=== PATIENT | female | born 1985 | race Caucasian/White ===

== ENCOUNTER 2016-04-22 17:38 | Observation (INO) | payer MEDICAID ==
[2016-04-22 18:32] LABS: CHLORIDE,CL 101 mmol/L (98-115); SODIUM,NA 137 mmol/L (136-145)
[2016-04-22] MEDS ORDERED: Iopamidol 612 MG/ML 75 ML Bottle IV PRN (18:50)
[2016-04-22] MEDS ORDERED: Sodium Chloride 0.9% 50 ML SDV FLUSH ONE (18:50)
[2016-04-22] MEDS ORDERED: Ibuprofen 400 MG Tab PO PRN (18:54)
[2016-04-22] MEDS ORDERED: Zolpidem 5 MG Tab PO PRN (18:54)
[2016-04-22] MEDS ORDERED: LORazepam 0.5 MG Tab PO PRN (18:54)
[2016-04-22] MEDS: Morphine 2 MG/ML Syringe IVPUSH PRN ×3 (19:01→23:49)
[2016-04-22] MEDS ORDERED: Levofloxacin/Dextrose 5%-Water 500 MG in Premix Bag 1 BAG IV ONE (20:08)
[2016-04-22] MEDS ORDERED: Levofloxacin/Dextrose 5%-Water 250 MG in Premix Bag 1 BAG IV ONE (20:08)
[2016-04-22] MEDS ORDERED: Levofloxacin/Dextrose 5%-Water 100 ML IV ONE (20:26)
[2016-04-22] MEDS ORDERED: Levofloxacin/Dextrose 5%-Water 50 ML IV ONE (20:27)
[2016-04-22] MEDS: Acetaminophen 325 MG Tab PO SCH ×2 (20:31→23:48)
[2016-04-22] MEDS: Vancomycin 1.75 GM in Sodium Chloride 0.9% 500 ML IV SCH (20:33)
[2016-04-22] MEDS ORDERED: Clindamycin HCl 150 MG Cap PO SCH (21:00)
[2016-04-22] MEDS: QUEtiapine 100 MG Tab PO SCH (21:28)
[2016-04-22] MEDS: Clindamycin Phosphate 600 MG in Dextrose 5% in Water 50 ML IV SCH ×2 (23:49)
[2016-04-23] MEDS: Morphine 2 MG/ML Syringe IVPUSH PRN ×7 (03:04→23:20)
[2016-04-23] MEDS: Acetaminophen 325 MG Tab PO SCH ×6 (03:04→22:31)
[2016-04-23] MEDS: Vancomycin 1.75 GM in Sodium Chloride 0.9% 500 ML IV SCH (03:05)
[2016-04-23] MEDS: Clindamycin Phosphate 600 MG in Dextrose 5% in Water 50 ML IV SCH ×8 (06:01→23:24)
[2016-04-23] MEDS: CHLORHEXIDINE PO SCH (08:45)
[2016-04-23] MEDS: Propranolol 80 MG Cap.ER PO SCH (08:46)
[2016-04-23] MEDS: Venlafaxine 150 MG Cap.ER PO SCH (08:46)
[2016-04-23] MEDS ORDERED: methylPREDNISolone Sodium Succinate 125 MG/2 ML SDV IVPUSH ONE (10:35)
[2016-04-23] MEDS ORDERED: Vancomycin 1.75 GM in Sodium Chloride 0.9% 500 ML IV SCH (12:00)
[2016-04-23] MEDS: Nicotine 14 MG/24 Hr Patch TRDERM SCH (12:25)
[2016-04-23] MEDS: Vancomycin 2 GM in Sodium Chloride 0.9% 500 ML IV SCH ×2 (12:26→19:46)
--- NOTE | 2016-04-23 12:26 | PN ---
04/23/2016 PATIENT NAME: LILLY CHÁVEZ CHIEF COMPLAINT: Does feel much better this morning, about 50% better, however, she does have some swelling that now down in her throat, some slightly difficulty swallowing, however, no stridor, no airway difficulty. HISTORY: This severely morbid obese female, who came to the [facility] and saw Corbin and Dr. Delano Sanches yesterday, with some concerns of a possible abscess in the left side of her jaw in her mouth. She had left-sided facial and submandibular pain and swelling. She had a similar condition about seven years ago which seemed to have resolved spontaneously. She does admit to some bad teeth, does not have dental insurance. She also had a fever with some trouble swallowing yesterday when she arrived at the [facility]. She was admitted for IV antibiotics and a CT scan for further diagnostics last night. DIAGNOSTICS: CT scan of the soft tissue of her neck did demonstrate a soft tissue phlegmon over her left side of her mandible, possible etiology of dental disease, however, there was no soft tissue abscess in her neck, and however, she did have some significant bilateral cervical adenopathy noted with that. LABORATORY DATA: White count 17,000 plus, platelet count 500, percentage of neutrophils 79.8, eosinophils 0.7. Sodium, potassium, BUN, and creatinine were all normal. Calcium, liver functions, and albumin were normal. PHYSICAL EXAMINATION: VITAL SIGNS: Temperature 97, that is down from 99.4 since admission. Blood pressure 121/75, heart rate 88, O2 sats 95%, respiratory rate 20. She is 413 pounds, approximately BMI around 67. GENERAL: The patient is alert and oriented, states she was feeling much better this morning. Her swelling in her left side of her mandible about 50% resolved, a little redness, looks like it is retracting from its marginal's that was drawn on her face last night, however, she does now complain of some swelling underneath her submental jaw with some difficulty swallowing. We will give 80 mg of Solu-Medrol x1 now. LUNGS: Clear to auscultation. CARDIOVASCULAR: Regular rate and rhythm. No S3 sounds. GASTROINTESTINAL: Nontender, good bowel tones. Blood cultures are pending. IMPRESSION/PLAN: 1. Possible odontogenic infection with soft tissue phlegmon, left-sided mandible, right now seems to be responding to IV antibiotics. We will continue with the clindamycin along with vancomycin. Vancomycin for Methicillin-resistant Staphylococcus aureus coverage, 80 mg of Solu-Medrol IV push x1 now, monitor for any sequela. 2. History of Methicillin-resistant Staphylococcus aureus about seven years. She is on vancomycin coverage. 3. Reactive thrombocytosis in the presence of infection. OVERALL PLAN: We will continue with IV antibiotics and ongoing monitoring. [employer] are helping with the patient, due to the patient's lack of dental insurance. Monitor for any ongoing infection, any airway compromise. Give her IV Solu-Medrol right now. /[id number]/MODL
[2016-04-23] MEDS: QUEtiapine 100 MG Tab PO SCH (22:34)
[2016-04-24] MEDS: Clindamycin Phosphate 600 MG in Dextrose 5% in Water 50 ML IV SCH ×2 (04:00)
[2016-04-24] MEDS ORDERED: Sodium Chloride 0.9% 250 ML ONE (04:09)
[2016-04-24] MEDS: Vancomycin 2 GM in Sodium Chloride 0.9% 500 ML IV SCH (04:44)
[2016-04-24] MEDS: Acetaminophen 325 MG Tab PO SCH ×2 (04:47→06:38)
[2016-04-24] MEDS: Morphine 2 MG/ML Syringe IVPUSH PRN (05:46)
[2016-04-24 06:01] VITALS: BP 129/76
[2016-04-24] MEDS: CHLORHEXIDINE PO SCH (10:14)
[2016-04-24] MEDS: Propranolol 80 MG Cap.ER PO SCH (10:15)
[2016-04-24] MEDS: Nicotine 14 MG/24 Hr Patch TRDERM SCH (10:15)
[2016-04-24] MEDS: Venlafaxine 150 MG Cap.ER PO SCH (10:16)
--- NOTE | 2016-04-24 12:24 | DISCH ---
FINAL DIAGNOSES: 1. Odontogenic infection with soft tissue phlegmon, left-sided mandible, much improved. 2. History of Methicillin-resistant Staphylococcus aureus. 3. Reactive thrombocytosis, improving. 4. Nicotine dependency. BRIEF HISTORY: This 30-year-old female was seen by Dr. Corbin Clemens and Dr. Delano Sanches with concerns of possible abscess, left side of her jaw. She had left-sided facial submandibular pain and swelling, similar condition 7 years ago which also responded to antibiotics. She does admit to some "bad teeth" in the past. She did not have any dental insurance as far as prior to admission. She also had a fever and some trouble swallowing the day of admission. She was admitted for IV antibiotics and a CT scan. DIAGNOSTICS: The patient did have a soft tissue CT scan of the neck, which did show phlegmon over the left side of the mandible, possible dental disease. However, no soft tissue abscess. She did have some significant bilateral cervical adenopathy. HOSPITAL COURSE: The patient's hospital course went well. She did get a dose of IV levofloxacin on admission and then, we had her on clindamycin along with vancomycin. This did respond, about 75% improvement. She also received a one- time dose of 80 mg of Solu-Medrol. She did have her swelling reduced down of the left side of her mandible; however, it did track down right underneath her submental area, underneath her chin. However, it was soft, non-hard, and non- indurated. [facility] Coordinator did visit with the patient. She will be set up with some sort of dental health coverage. LABORATORY DATA: White count on admission was around 17,000, it did improve to 10,000; percent of neutrophils were 79,000 on admission, reduced to 62%. Sodium 137, potassium 4.0, BUN and creatinine normal. Vancomycin trough was therapeutic at 12.6. Microbiology report, blood cultures no growth so far. PHYSICAL EXAM ON DISCHARGE: VITAL SIGNS: On discharge, temperature 97.1, heart rate 75, blood pressure 129/76, O2 sats were 94% on room air, respiratory rate 18. She tolerated all her meals. She stayed well hydrated. She did have some mild pain, especially when eating. It was controlled with IV morphine along with oral ibuprofen. She never had any complications or side effects to any treatments. MEDICATIONS: Levofloxacin 750 mg p.o. daily along with Bactrim DS 1 mg p.o. b.i.d., nicotine patch 14 mg daily. The patient does have a desire to quit; however, she is in contemplation phase. She has tried to quit in the past. Hopefully, we can get her on oral medications to help with this. She can continue on all her other home medications except discontinue her clindamycin. DISPOSITION: The patient will be discharged from the hospital. She is to take her medication. She will follow up Dr. Corbin Clemens next week at the [facility]. She has a dental appointment planning process in [place]. She is to report any increase in swelling, pain, fever or redness, or any difficulty swallowing. RECOMMENDATIONS ON FOLLOW-UP; determine compliance with dental appointment and smoking cessation efforts and desire 27 minutes were spent on this discharge planning and process. /[id number]/MODL MTDD
== END 2016-04-24 11:50 | disposition home or self-care (01) ==
LOC: KA.MS 17:45
PROVIDERS: ADMIT Physician Assistant; ATTEND Physician Assistant
DX: M27.2 Inflammatory conditions of jaws (principal); D47.3 Essential (hemorrhagic) thrombocythemia; F41.9 Anxiety disorder, unspecified; J45.909 Unspecified asthma, uncomplicated; N18.9 Chronic kidney disease, unspecified; E66.9 Obesity, unspecified; F17.200 Nicotine dependence, unspecified, uncomplicated; Z79.899 Other long term (current) drug therapy; Z88.0 Allergy status to penicillin; Z88.8 Allergy status to other drugs, medicaments and biological substances; Z90.49 Acquired absence of other specified parts of digestive tract; Z98.890 Other specified postprocedural states; Z96.659 Presence of unspecified artificial knee joint; F17.210 Nicotine dependence, cigarettes, uncomplicated
CPT/HCPCS: 36415; 70491; 80053; 80202; 85025; 87040; 96365; 96366; 96367; 96375; 96376; A9270-GY; G0378; G0379; J1956; J2270; J2930; J3370; J7040; J7050; J7060; Q9967; S0077